=== PATIENT | male | born 1980 | race Caucasian/White ===

== ENCOUNTER 2017-11-23 21:05 | Emergency (ER) | payer BC ==
[2017-11-23 23:12] VITALS: BP 109/75
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
--- NOTE | 2017-11-24 07:12 | RAD ---
INDICATION: Pain and swelling. COMPARISON: None TECHNIQUE: Duplex interrogation of the Lowerextremity was performed. FINDINGS: Deep veins: The common femoral, great saphenous, profunda femoris, proximal, mid, and distal deep femoral, popliteal, posterior tibial, and peroneal veins are patent. There is normal compressibility, augmentation, and phasic flow. Superficial veins: There are no findings of superficial thrombophlebitis. Popliteal fossa:There is no evidence of a popliteal cyst. Soft tissues:There are no soft tissue abnormalities. IMPRESSION: Normal examination. No evidence of deep venous thrombosis
== END 2017-11-23 23:10 | disposition home or self-care (01) ==
LOC: ED 21:05
DX: R60.0 Localized edema (principal); F17.200 Nicotine dependence, unspecified, uncomplicated
CPT/HCPCS: 93970; 99282

== ENCOUNTER 2018-02-21 06:31 | Emergency (ER) | payer BC, MEDICAID, OTHER ==
[2018-02-21] MEDS ORDERED: predniSONE TAB* 20 MG PO ONE (07:29)
[2018-02-21] MEDS ORDERED: Ketorolac INJ* 60 MG/2 ML VIAL IM ONE (07:29)
[2018-02-21] MEDS ORDERED: Cyclobenzaprine TAB* 10 MG PO ONE (07:30)
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
[2018-02-21 07:47] VITALS: BP 136/96
== END 2018-02-21 07:46 | disposition home or self-care (01) ==
LOC: ED 06:31
DX: S46.812A Strain of other muscles, fascia and tendons at shoulder and upper arm level, left arm, initial encounter (principal); X58.XXXA Exposure to other specified factors, initial encounter; Y93.89 Activity, other specified; Y92.019 Unspecified place in single-family (private) house as the place of occurrence of the external cause; R06.02 Shortness of breath; M25.511 Pain in right shoulder; M25.512 Pain in left shoulder; Z91.030 Bee allergy status; Z91.048 Other nonmedicinal substance allergy status; F17.210 Nicotine dependence, cigarettes, uncomplicated; F12.90 Cannabis use, unspecified, uncomplicated
CPT/HCPCS: 96372; 99282; A9270-GY; J1885; J7512

== ENCOUNTER 2019-04-10 09:17 | Emergency (ER) | payer BC, MEDICAID ==
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
[2019-04-10] MEDS ORDERED: Morphine 4 MG/ML VIAL (1 ml) 4 MG/ML VIAL IV ONE (09:36)
[2019-04-10] MEDS ORDERED: Ondansetron INJ* 2 MG/ML VIAL IV ONE (09:37)
[2019-04-10 09:48] LABS: ABS Basophils 0.1 10^3/ul (0-0.2); ABS Eosinophils 0.2 10^3/ul (0-0.6); Eosinophil % 1.7 %; Hematocrit 48 % (42-52); Hemoglobin 16.4 g/dL (14.0-18.0); Lymphocyte % 35.6 %; Mean Corpuscular HGB Conc 35 g/dL (31-36); Mean Corpuscular Hemoglobin 29 pg (27-31); Mean Corpuscular Volume 84 fL (80-94); Mean Platelet Volume 7.7 fL (7.4-10.4); Platelet Count 260 10^3/uL (150-450); Red Blood Count 5.64 10^6 /uL (4.18-5.48); Red Cell Distribution Width 13 % (10-15); White Blood Count 11.2 10^3/uL (3.5-10.8)
[2019-04-10 10:05] LABS: Albumin 4.4 g/dL (3.2-5.2); Albumin/Globulin Ratio 1.5 (1-3); BUN/Creatinine Ratio 16.5 (8-20); C Reactive Protein 3.79 mg/L (<8.01); Calcium 9.7 mg/dL (8.6-10.3); EGFR African American 123.4 (>60); Total Bilirubin 0.6 mg/dL (0.2-1.0); Total Protein 7.4 g/dL (6.4-8.9)
[2019-04-10] MEDS ORDERED: Ketorolac INJ* 30 MG/ML 1 ML VIAL IV PUSH ONE (12:51)
[2019-04-10 13:39] VITALS: BP 115/74
--- NOTE | 2019-04-10 15:07 | CONS ---
CONSULTATION REPORT: DATE OF CONSULT: 04/10/19 - EMERGENCY DEPT REFERRING PROVIDER: Dr. Guo from the emergency room. REASON FOR CONSULT: Left spontaneous pneumothorax. CHIEF COMPLAINT: Left chest discomfort. HISTORY OF PRESENT ILLNESS: Mr. Renaldo Kim is a 38-year-old gentleman who has a history of lower back and right shoulder pain after an injury, who woke up this morning and developed some left-sided chest discomfort. This was not associated with particular shortness of breath; however, he was quite anxious and he presented to the emergency room. He denied any recent injuries or falls. He was doing well when he fell asleep last night. In the emergency room, he was noted to be afebrile with stable vital signs and excellent oxygen saturation on room air. He underwent a chest x-ray, which showed a 15% to 20% left-sided spontaneous pneumothorax without midline shift or other acute abnormality. He is a long time smoker. Also smokes marijuana. PAST MEDICAL HISTORY: Unremarkable other than a work injury. MEDICATIONS: None. ALLERGIES: He is allergic to BEE VENOM, MINERAL OIL, PETROLATUM, and CERTAIN SOAPS. SOCIAL HISTORY: He is . He has 2 children. He works as a computer principle software engineer. REVIEW OF SYSTEMS: As per above. He has never had spontaneous pneumothoraces in the past. He has been a long time smoker. PHYSICAL EXAM: Temperature 97.6, pulse 59, blood pressure 115/74, oxygen saturation 98%. In general, he is a well-developed, well-nourished male, appears to be in no apparent distress. He is speaking in full sentences. He shows no signs of shortness of breath or anxiety. He is alert and oriented x3. His trachea was midline. His lungs have slight decrease in breath sounds in the apex of the left lung, but are clear throughout. There was no crepitus. He has no splinting. His heart was regular rate and rhythm without rubs or gallops with crisp heart sounds. Abdomen was soft, nondistended. IMPRESSION AND PLAN: Spontaneous pneumothorax. It was initially seen on a chest x- ray obtained, which showed a pneumothorax approximately 15% to 20% in size. I initially discussed placement of a pneumothorax catheter to decompress the lung and evacuate the air to expand the lung. He is quite anxious about having a tube placed and I did explain to him that this does have some risks, but we feel that the benefits outweigh the risks, but it is a catheter that may need to stay in for several days and require followup. After our initial discussion, an option was given to him in light of his reluctance to proceed with catheter placement was for a serial chest x-ray would be obtained in about 3 hours and he agreed upon this. A subsequent chest x-ray done about 2-1/2 hours later shows the pneumothorax to be the same or slightly larger depending on the view, although to my view it appears to be about the same size. There is no subcutaneous air. The trachea and mediastinal structures were all midline with no shift. I once again reviewed the findings on the chest x-ray with the patient and his who was present during my second visit. I stated that the prudent and conservative approach would be placement of the pneumothorax catheter to decompress the lung and prevent worsening collapse and/ or symptoms. Once again, I explained the risks of, but not limited to bleeding , infection, cardiopulmonary injury and discomfort, and the fact that the catheter may need to be in place for several days or longer and he once again is reluctant to proceed with catheter placement. He clinically is doing well with excellent oxygen saturations with no shortness of breath other than he is having some pleuritic chest pain, although this has improved with some analgesia. I think it is acceptable that he be discharged home with careful observation. He lives with his and lives here in [place] and if certainly he worsens he needs to call 911 or present immediately to the emergency room for followup care. He understands the risks of not placing the catheter and I explained this to him. Plan now is for him to be discharged home with instructions not to proceed with any heavy lifting, straining, or exercise. He is going to return to the emergency room tomorrow morning for a followup chest x-ray for followup assessment. If he worsens in the next 12 to 24 hours, he should report to the emergency room or call 911 immediately. All the above was discussed with Dr. Guo from here in the emergency room. [id number]/CPS #: [id number]
== END 2019-04-10 13:30 | disposition home or self-care (01) ==
LOC: ED 09:17
DX: J93.9 Pneumothorax, unspecified (principal); F17.210 Nicotine dependence, cigarettes, uncomplicated
CPT/HCPCS: 36415; 71045; 80053; 83605; 84484; 85025; 86140; 93005; 96374; 96375; 99285; J1885; J2270; J2405

== ENCOUNTER 2019-04-11 08:06 | Emergency (ER) | payer BC ==
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
[2019-04-11] MEDS ORDERED: fentaNYL* 50 MCG/ML 2 ML VIAL (100 MCG VIAL) IV SLOW PU PRN (09:10)
[2019-04-11 11:35] VITALS: BP 127/65
== END 2019-04-11 11:30 | disposition home or self-care (01) ==
LOC: ED 08:06
DX: J93.9 Pneumothorax, unspecified (principal); R07.9 Chest pain, unspecified; R06.02 Shortness of breath; R05 Cough; F17.210 Nicotine dependence, cigarettes, uncomplicated
CPT/HCPCS: 71045; 71046; 96374; 99285; J3010